=== PATIENT | female | born 1960 | race Caucasian/White ===

== ENCOUNTER → 2019-02-08 | Outpatient (CLI) | payer BC ==
[2015-10-10 12:05] VITALS: BP 125/65
[~2019-02-08] MED LIST: CA/D1TAB11 PO; FEXO1TAB31 PO; LANS30CA66 PO; LEXAPRO20 MG PO; MULT1TAB52 PO; OXYC1TAB15 PO; TIOT18CA IH
--- NOTE | 2019-02-08 10:23 | KCIC ---
EXAM: CT Chest without IV contrast CLINICAL HISTORY: Smoker 20 years. One pack a day. COMPARISON: None. TECHNIQUE: CT of the chest without intravenous contrast. Axial, coronal and sagittal reformatted images were generated. ---PQRS compliance statement - One or more of the following individualized dose reduction techniques were utilized for this study: 1. Automated exposure control 2. Adjustment of the mA and/or kV according to patient size 3. Use of iterative reconstruction technique--- FINDINGS: Lack of intravenous contrast limits evaluation of solid organs, vasculature, and lymph nodes. Chest: Heart is not enlarged. Coronary artery calcifications are seen. No pericardial effusion. Calcified mediastinal and hilar lymph nodes are seen. No mediastinal or hilar lymphadenopathy within the constraints of this low-dose noncontrast examination. No axillary lymphadenopathy. No pleural effusion or pneumothorax. Bilateral emphysematous changes are seen. This is most prominent in the upper lungs. Calcified granuloma are seen bilaterally. A 3 mm right upper lobe lung nodule (series 7 image 138) is seen. Mild pleural-based nodularity in the medial right middle lobe likely focal scarring/atelectasis. Linear opacities in the lower lobes also likely scarring/atelectasis. Visualized Upper abdomen: Small hiatal hernia. Upper abdomen is grossly unremarkable. Bones: Osseous structures are grossly unremarkable. Mild exaggeration of the thoracolumbar kyphosis. RECOMMENDATIONS/ IMPRESSION: 1. LUNG-RADS category: 2. Recommend 12 month low-dose surveillance CT scan per ACR guidelines. 2. Other incidental findings as above. LUNG-RADS category recommendations: Category 1: Surveillance scan in 12 months per ACR guidelines Category 2: Surveillance scan in 12 months per ACR guidelines Category 3: Multidisciplinary consultation in the [facility]. The Lung Cancer Screening coordinator will contact the patient to set up an appointment for further evaluation per ACR guidelines Category 4: Multidisciplinary consultation in the [facility] Cancer Screening Clinic. The Lung Cancer Screening coordinator will contact the patient to set up an appointment for further evaluation per ACR guidelines Category S: Clinically significant or potentially significant findings Category C: Patient with prior diagnosis of lung cancer who returns to screening Category O: Prior chest CT being located for comparison; part or all of lungs cannot be evaluated Electronically signed by: Deolnte Garcia MD (02/08/2019 10:20 AM) [id number]
== END | disposition home or self-care (01) ==
LOC: KCIC CT 08:30
PROVIDERS: ATTEND Internal Medicine
DX: Z12.2 Encounter for screening for malignant neoplasm of respiratory organs (principal); J43.9 Emphysema, unspecified; J84.10 Pulmonary fibrosis, unspecified; R91.1 Solitary pulmonary nodule; K44.9 Diaphragmatic hernia without obstruction or gangrene; M40.295 Other kyphosis, thoracolumbar region; Z87.891 Personal history of nicotine dependence
CPT/HCPCS: G0297

== ENCOUNTER → 2019-06-15 | Outpatient (CLI) | payer BC ==
[2015-10-10 12:05] VITALS: BP 125/65
--- NOTE | 2019-06-16 07:39 | SLEEP ---
DATE OF STUDY: 06/15/2019 REFERRING PHYSICIAN: Dr. Art Franks. The patient is a 59-year-old who weighs 157 pounds with a BMI of 26. The patient's [place] score was only 3. The patient underwent diagnostic sleep study performed at [facility]. During the night study, the patient spent 455 minutes in bed and slept for 333 minutes with a sleep efficiency of 73%. Sleep latency was 35 minutes with a REM latency of 290 minutes. Sleep architecture showed increased stage 1 and stage 2 sleep, normal slow wave and slightly reduced REM sleep. During the night study, the patient had no obstructive apneas, no mixed or central apneas and 16 hypopneas. The patient's apnea-hypopnea index was 3 per hour, supine index 0 per hour and REM index of 16 per hour. EKG monitoring revealed normal sinus rhythm, average heart rate was in the 80s. One episode of sinus tachycardia with a maximum heart rate of 104 observed. Nocturnal oximetry study revealed sustained hypoxia suggesting hypoventilation. Lowest oxygen saturation was 80%. 57% of the time saturations remained < 90%. Desaturations were prominent during REM PLMS were seen at index of 35 per hour and 7 per hour caused EEG arousals. Due to low AHI, the patient did not meet the split night criteria for CPAP initiation. IMPRESSION: 1. No clinically significant sleep disorder breathing. The patient's AHI for the entire night was 3 per hour. 2. Sustained nocturnal hypoxia suggestive of hypoventilation. 3. Moderate PLMS. RECOMMENDATIONS: 1. The patient did not meet the split night criteria for CPAP initiation due to low AHI. 2. Avoid LINE RIDER depressants. 3. Consider oxygen at 1-2 liters to correct the patient's hypoxia. CHRISTEN GERONIMO MD DR: ALYCE/mei JOB#: [id number] / [id number] ADRIANNA
== END | disposition home or self-care (01) ==
LOC: SLPLAB 19:19
PROVIDERS: ATTEND Internal Medicine Pulmonary Disease
DX: R09.02 Hypoxemia (principal)
CPT/HCPCS: 95810

== ENCOUNTER → 2019-07-04 | Outpatient (CLI) | payer BC ==
[2015-10-10 12:05] VITALS: BP 125/65
--- NOTE | 2019-07-04 14:41 | CARD ---
MR#: [id number] Date of Study: 07/04/2019 Ordering Physician: ADRIANA SONG, Referring Physician: ADRIANA SONG, Tech: Keri Marques [facility] APPROVED REPORT EXAM: Two-dimensional and M-mode echocardiogram with Doppler and color Doppler. Other Information Quality : GoodHR: 92bpm Rhythm : NSR INDICATION HYPOXEMIA 2D DIMENSIONS RVDd3.2 (2.9-3.5cm)Left Atrium(2D)2.7 (1.6-4.0cm) IVSd0.9 (0.7-1.1cm)Aortic Root(2D)2.9 (2.0-3.7cm) LVDd4.3 (3.9-5.9cm)LVOT Diameter2.1 (1.8-2.4cm) PWd0.8 (0.7-1.1cm)LVDs3.1 (2.5-4.0cm) FS (%) 27.5 %SV44.8 ml LVEF(%)53.8 (>50%) M-Mode DIMENSIONS Left Atrium(MM)2.70 (2.5-4.0cm)Aortic Root2.82 (2.2-3.7cm) Aortic Valve AoV Peak Yung.95.6cm/sAoV VTI17.0cm AO Peak GR.3.7mmHgLVOT Peak Yung.69.8cm/s AO Mean GR.2mmHgAVA (VMAX)2.53cm2 RADHA (VTI)2.60cm2 Mitral Valve MV E Nevqkiyv20.2cm/sMV DECEL XDEQ126uj MV A Umlefirs12.9cm/sE/A Ratio0.7 Pulmonary Valve PV Peak Pefwlkhd42.0cm/s Tricuspid Valve TR P. Ityddhgu489cu/sRAP PIPHHZPI7umPo TR Peak Gr.76lrVjNBTP82vrZf LEFT VENTRICLE The left ventricle is normal size. There is normal left ventricular wall thickness. The left ventricu lar systolic function is normal and the ejection fraction is within normal range. The Ejection Fracti on is 55-60%. There is grossly normal LV segmental wall motion. Transmitral Doppler flow pattern is G rade I-abnormal relaxation pattern. RIGHT VENTRICLE The right ventricle is normal size. There is normal right ventricular wall thickness. The right ventr icular systolic function is normal. ATRIA The left atrium size is normal. The right atrium size is normal. The interatrial septum is intact wit h no evidence for an atrial septal defect or patent foramen ovale as noted on 2-D or Doppler imaging. AORTIC VALVE The aortic valve is normal in structure and function. The aortic valve is trileaflet. Doppler and Col or Flow revealed no significant aortic regurgitation. There is no significant aortic valvular stenosi s. There is no aortic valvular vegetation. MITRAL VALVE The mitral valve is normal in structure and function. There is no evidence of mitral valve prolapse. There is no mitral valve stenosis. Doppler and Color-flow revealed trace mitral regurgitation. TRICUSPID VALVE The tricuspid valve is normal in structure and function. Doppler and Color Flow revealed trace tricus pid regurgitation. The PA pressure was estimated at 28 mmHg. There is no tricuspid valve prolapse or vegetation. There is no tricuspid valve stenosis. PULMONIC VALVE Doppler and Color Flow revealed no pulmonic valvular regurgitation. There is no pulmonic valvular goldie nosis. GREAT VESSELS The aortic root is normal in size. The ascending aorta is normal in size. The IVC is normal in size a nd collapses >50% with inspiration. PERICARDIAL EFFUSION There is no evidence of significant pericardial effusion. Critical Notification Critical Value: No <Conclusion> The left ventricular systolic function is normal and the ejection fraction is within normal range. Th e Ejection Fraction is 55-60%. There is grossly normal LV segmental wall motion. Signed by : Shaun Suazo, Electronically Approved : 07/04/2019 14:41:04
== END | disposition home or self-care (01) ==
LOC: ECHO 13:50
PROVIDERS: ATTEND Internal Medicine Pulmonary Disease
DX: R09.02 Hypoxemia (principal)
CPT/HCPCS: 93306

== ENCOUNTER → 2020-06-21 | Outpatient (CLI) | payer BC ==
[2015-10-10 12:05] VITALS: BP 125/65
[~2020-06-21] MED LIST changes: +IOHEXOL 300 MG/ML 100ML VIAL. IV ONE; +MULT-445 PO; -MULT1TAB52 PO
--- NOTE | 2020-06-21 16:20 | KCIC ---
CT CHEST W/CONTRAST Indication: Lung nodule follow-up, previous smoker Technique: Postcontrast CT imaging was performed of the chest, multiplanar reconstruction images submitted. One or more of the following individualized dose reduction techniques were utilized for this examination: 1. Automated exposure control 2. Adjustment of the mA and/or kV according to patient size 3. Use of iterative reconstruction technique. Comparison: March 10, 2019 Findings: There is no new suspicious lung nodularity. There is again calcified left upper lobe nodule. Slightly nodular appearing focus of density of the medial right middle lobe along the pleural surface image 47 series 2 about 0.8 cm is stable. Less than 0.2 cm right upper lobe nodule image 20 series 2 is stable. There is again severe emphysema with upper zone predominance. Thoracic aortic caliber is within normal limits, no intraluminal flap. This noncalcified mediastinal and right hilar nodes. There is no new infiltrate, pleural or pericardial fluid, or pneumothorax. There is small hiatal hernia, nonspecific wall thickening of involved segment. IMPRESSION: 1. There is no new suspicious lung nodularity. Assuming patient is to continue with lung cancer screening, lung RADS category 2, low-dose CT in 12 months recommended. 2. There is again severe emphysema. 3. There is small hiatal hernia, nonspecific wall thickening of involved segment. Electronically signed by: Perez Bethea MD (06/21/2020 4:17 PM) [id number]
== END ==
LOC: KCIC CT 14:43
PROVIDERS: ATTEND Internal Medicine
DX: R91.8 Other nonspecific abnormal finding of lung field (principal); K44.9 Diaphragmatic hernia without obstruction or gangrene; J43.9 Emphysema, unspecified; Z87.891 Personal history of nicotine dependence
CPT/HCPCS: 71260; Q9967